=== PATIENT | female | born 2000 | race Caucasian/White ===

== ENCOUNTER 2022-07-16 15:01 | Emergency (ER) | payer MEDICARE, SELFPAY ==
[2022-07-16] MEDS: SODIUM CHLORIDE 0.9% 1,000 ML 1000 ML IV (15:09)
[2022-07-16 15:13] VITALS: BP 127/77; PULSE 77; RESP 18; TEMP 36; O2SAT 100; BMI 27.4
[2022-07-16 15:14] LABS: Add Manual Diff / Slide Review NO; Basophils Absolute Auto 0 /uL (0-100); Basophils Percent Auto 0.6 % (0-2); Eosinophils Absolute Auto 0 /uL (0-450); Eosinophils Percent Auto 0.5 % (2-4); Hematocrit 39.3 % (36-46); Hemoglobin 13.4 g/dL (12.0-16.0); Lymphocytes Absolute Auto 1800 /uL (1100-4500); Lymphocytes Percent Auto 22.2 % (25-40); Mean Corpuscular HGB Conc 34.2 % (30-36); Mean Corpuscular Hemoglobin 29.4 PG (26-34); Mean Corpuscular Volume 85.8 fL (80-100); Monocytes Absolute Auto 600 /uL (0-900); Monocytes Percent Auto 7.3 % (3-14); Neutrophils Absolute Auto 5700 /uL (1500-7000); Neutrophils Percent Auto 69.4 % (50-75); Platelet Count 324 X10^3/uL (150-400); Red Blood Cell Count 4.57 X10^6/uL (4.0-5.2); Red Cell Distribution Width 13.5 % (11.6-14.8); White Blood Cell Count 8.2 X10^3/uL (4.5-11.0)
[2022-07-16 15:31] LABS: Alanine Aminotransferase 16 IU/L (<35); Albumin 4.7 g/dL (3.5-5.0); Albumin Globulin Ratio 1.3 (1.0-2.8); Alkaline Phosphatase 71 U/L (38-126); Aspartate Aminotransferase 19 IU/L (14-36); BUN Creatinine Ratio 15.7 (6-22); Bilirubin Total 0.8 mg/dL (0.2-1.3); Blood Urea Nitrogen 11 mg/dL (7-17); Calcium 9.5 mg/dL (8.4-10.2); Carbon Dioxide 23 mmol/L (22-32); Chloride 100 mmol/L (98-107); Estimated Glomerular Filt Rate > 60 mL/min (>60); Globulin 3.5 g/dL (1.7-4.1); Glucose 284 mg/dL (70-100); HEMOLYSIS < 15 (0-50); Lipase 64 U/L (23-300); Potassium 3.7 mmol/L (3.4-5.1); Sodium 135 mmol/L (137-145); Total Protein 8.2 g/dL (6.3-8.2)
--- NOTE | 2022-07-16 15:31 | PC.NURSE ---
Patient reports first BM today was normal and when abdominal pain and cramping started had 2 back to back episodes of diarrhea. Patient reports been on amoxicillin for a week.
[2022-07-16 15:32] VITALS: BP 108/71; PULSE 62; RESP 16; O2SAT 100
[2022-07-16 16:09] VITALS: BP 111/69; PULSE 61; RESP 16; O2SAT 100
[2022-07-16 17:25] LABS: Hemoglobin A1C% w Est Avg Glu 6.8 % (4.0-6.0)
--- NOTE | 2022-07-16 17:58 | ED_ITS ---
HPI - Nausea/Vomiting/Diarrhea General Chief complaint: Nausea/Vomiting/Diarrhea Stated complaint: n/v/d Time Seen by Provider: 07/16/22 17:58 Source: patient and EMS Mode of arrival: EMS History of Present Illness HPI Narrative: Patient is a 22-year-old female history of type 1 diabetes presenting today with nausea vomiting. He reports that she had a really bad menstrual cramps she took an ibuprofen she vomited. She also felt that her heart rate was going really slow she felt a little dizzy and lightheaded she did not pass out. 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 She received fluids and Zofran and now feeling better. She also reports that she is taking amoxicillin for a tooth that needs to be pulled. Related Data Allergies Allergy/AdvReac Type Severity Reaction Status Date / Time gabapentin AdvReac Mild ITCHING Verified 07/16/22 15:13 Review of Systems Review of Systems ROS Unobtainable: All systems reviewed & are unremarkable except as noted in HPI and below Patient History Social History Smoking Status: Current every day smoker Smoking Status: Current every day smoker tobacco type: vaping Substance Use Type: marijuana Exam Initial Vital Signs Initial Vital Signs: Vital Signs Temperature 96.8 F L 07/16/22 15:13 Pulse Rate 77 07/16/22 15:13 Respiratory Rate 18 07/16/22 15:13 Blood Pressure 127/77 07/16/22 15:13 Pulse Oximetry 100 07/16/22 15:13 Oxygen Delivery Method Room Air 07/16/22 15:13 GENERAL: Alert pleasant 22-year-old female and in no acute distress. HEENT: Head atraumatic,EOMI, pupils reactive, face symmetric, moist mucous membranes CARDIOVASCULAR: Regular rate and rhythm without murmurs, rubs or gallops. RESPIRATORY: Breath sounds equal bilaterally, no wheezes rales or rhonchi. ABDOMEN: Soft, nontender. Normoactive bowel sounds all 4 quadrants. No guarding or rebound. EXTREMITIES: Normal range of motion, no clubbing or edema. Neurovascularly in tact NEUROLOGICAL: Alert and oriented x4. SKIN: Warm, dry, no laceration, no petechiae, no rashes or lesions. Course Orders Ordered: Discontinued Medications Sodium Chloride (Normal Saline 0.9%) 1,000 mls @ 1,000 mls/hr IV BOLUS ONE Stop: 07/16/22 16:04 Last Infusion: 07/16/22 16:41 Dose: 0 mls/hr Documented By: Admin: 07/16/22 15:09 Dose: 1,000 mls/hr Documented By: CESAR Ondansetron HCl (Ondansetron 4 Mg/2 Ml Inj) 4 mg IV NOW PRN PRN Reason: Nausea And Vomiting Vital Signs Vital signs: Vital Signs - 8 hr 07/16/22 15:13 07/16/22 15:32 07/16/22 16:09 Temperature 96.8 F L Pulse Rate 77 62 61 Respiratory Rate 18 16 16 Blood Pressure 127/77 108/71 111/69 Pulse Oximetry 100 100 100 Oxygen Delivery Method Room Air Room Air Room Air MDM - Nausea/Vomiting/Diarrhea Lab Data 07/16/22 15:08 07/16/22 15:08 Labs: Lab Results 07/16/22 07/16/22 07/16/22 Range/Units 15:08 15:08 15:08 WBC 8.2 (4.5-11.0) X10^3/uL RBC 4.57 (4.0-5.2) X10^6/uL Hgb 13.4 (12.0-16.0) g/dL Hct 39.3 (36-46) % MCV 85.8 (80-100) fL MCH 29.4 (26-34) PG MCHC 34.2 (30-36) % RDW 13.5 (11.6-14.8) % Plt Count 324 (150-400) X10^3/uL Neut % (Auto) 69.4 (50-75) % Lymph % (Auto) 22.2 L (25-40) % [place]att % (Auto) 7.3 (3-14) % Eos % (Auto) 0.5 L (2-4) % Baso % (Auto) 0.6 (0-2) % Neut # (Auto) 5700 (6666-9444) /uL Lymph # (Auto) 1800 (3789-4740) /uL [place] # (Auto) 600 (0-900) /uL Eos # (Auto) 0 (0-450) /uL Baso # (Auto) 0 (0-100) /uL Sodium 135 L (137-145) mmol/L Potassium 3.7 (3.4-5.1) mmol/L Chloride 100 (98-107) mmol/L Carbon Dioxide 23 (22-32) mmol/L BUN 11 (7-17) mg/dL Creatinine 0.70 (0.52-1.04) mg/dL Estimated GFR > 60 (>60) mL/min BUN/Creatinine Ratio 15.7 (6-22) Glucose 284 H (70-100) mg/dL Hemoglobin A1c 6.8 H (4.0-6.0) % Calcium 9.5 (8.4-10.2) mg/dL Total Bilirubin 0.8 (0.2-1.3) mg/dL AST 19 (14-36) IU/L ALT 16 (<35) IU/L Alkaline Phosphatase 71 (38-126) U/L Total Protein 8.2 (6.3-8.2) g/dL Albumin 4.7 (3.5-5.0) g/dL Globulin 3.5 (1.7-4.1) g/dL Albumin/Globulin Ratio 1.3 (1.0-2.8) Lipase 64 (23-300) U/L ECG Data Interpretation: Normal sinus rhythm 1 IA 26 QRS [address] changes no T-wave inversions MDM Narrative Medical decision making narrative: Patient 22-year-old female history of insulin-dependent diabetes presenting to vomiting after taking ibuprofen for menstrual cramps. She received Phenergan by EMS overall feeling better. Electrolytes are within normal limits she has no sign of DKA. No evidence of leukocytosis or anemia. Her hemoglobin A1c today is 6.8, overall well controlled. She is now tolerating fluids. Abdomen is soft . No need for further imaging. She overall feels significantly better. Is possible her ibuprofen made her vomit not entirely sure. She is not having any significant weaning sounds as though she is heavy menstrual cramps any way she is not anemic. Discharge Plan Departure Patient Disposition: Home Clinical Impression: Drug-induced nausea and vomiting Instructions: DI for Vomiting -- Adult Activity Restrictions/Additional Instructions: *You have been diagnosed with vomiting likely secondary to medication and crampy *What to do: At this time increase fluids as tolerated, *Continue to take medications as directed *Follow up with your primary care provider in 2-3 days or call [phone] *Return to ER if you should have persistent vomiting worsening pain heavy bleeding more than 2 super pads or tampons in an hour or any new, worsening or concerning symptoms Referrals: Froylan Villa MD [Primary Care Provider] - Stand Alone Forms: Patient Portal/API
[2022-07-16 18:52] VITALS: BP 110/59; PULSE 64; RESP 16; O2SAT 100
== END 2022-07-16 18:55 | disposition home or self-care (01) ==
PROVIDERS: Emergency Medicine; Emergency Provider Emergency Medicine; PCP Family Medicine Sports Medicine
DX: R11.2 Nausea with vomiting, unspecified (principal); R07.9 Chest pain, unspecified
CPT/HCPCS: 36415; 80053; 83036; 83690; 85025; 93005; 93010; 96360; 96361; 99284

== ENCOUNTER 2022-07-17 09:54 | Emergency (ER) | payer MEDICARE, SELFPAY ==
[2022-07-17 10:03] VITALS: BP 136/85; PULSE 100; RESP 16; TEMP 37.2; O2SAT 97; BMI 27.4
[2022-07-17 10:21] LABS: Add Manual Diff / Slide Review NO; Basophils Absolute Auto 0 /uL (0-100); Basophils Percent Auto 0.1 % (0-2); Eosinophils Absolute Auto 0 /uL (0-450); Eosinophils Percent Auto 0.9 % (2-4); Hematocrit 36.9 % (36-46); Hemoglobin 12.6 g/dL (12.0-16.0); Lymphocytes Absolute Auto 900 /uL (1100-4500); Lymphocytes Percent Auto 15.6 % (25-40); Mean Corpuscular HGB Conc 34.1 % (30-36); Mean Corpuscular Hemoglobin 29.5 PG (26-34); Mean Corpuscular Volume 86.5 fL (80-100); Monocytes Absolute Auto 500 /uL (0-900); Neutrophils Absolute Auto 4300 /uL (1500-7000); Neutrophils Percent Auto 75.4 % (50-75); Platelet Count 271 X10^3/uL (150-400); Red Blood Cell Count 4.27 X10^6/uL (4.0-5.2); Red Cell Distribution Width 14.1 % (11.6-14.8); White Blood Cell Count 5.7 X10^3/uL (4.5-11.0)
[2022-07-17] MEDS: PANTOPRAZOLE 40 MG VIAL 80 MG IV (10:24)
[2022-07-17 10:28] VITALS: PULSE 87; O2SAT 98
[2022-07-17 10:29] LABS: Prothrombin Time 11.4 SECONDS (10.1-12.7)
[2022-07-17 10:30] VITALS: BP 125/63; PULSE 85; O2SAT 98
[2022-07-17 10:31] LABS: PTT Partial Thromboplastin Tim 31 SECONDS (26-36)
[2022-07-17 10:32] LABS: Alanine Aminotransferase 14 IU/L (<35); Albumin 4.3 g/dL (3.5-5.0); Albumin Globulin Ratio 1.3 (1.0-2.8); Alkaline Phosphatase 102 U/L (38-126); Aspartate Aminotransferase 17 IU/L (14-36); Bilirubin Total 0.2 mg/dL (0.2-1.3); Blood Urea Nitrogen 8 mg/dL (7-17); Calcium 8.2 mg/dL (8.4-10.2); Carbon Dioxide 25 mmol/L (22-32); Chloride 102 mmol/L (98-107); Estimated Glomerular Filt Rate > 60 mL/min (>60); Globulin 3.3 g/dL (1.7-4.1); Glucose 391 mg/dL (70-100); HEMOLYSIS < 15 (0-50); Potassium 4.3 mmol/L (3.4-5.1); Sodium 137 mmol/L (137-145); Total Protein 7.6 g/dL (6.3-8.2)
[2022-07-17 10:33] LABS: Appearance Urine UA OTHER; Bilirubin Urine UA NEGATIVE (NEGATIVE); Color Urine UA YELLOW; Glucose Urine UA 3+ g/dL (Negative); Ketones Urine UA NEGATIVE (NEGATIVE); Leukocyte Esterase Urine UA NEGATIVE (NEGATIVE); Nitrite Urine UA NEGATIVE (Negative); Occult Blood Urine UA 3+ (Negative); Protein Urine UA NEGATIVE (Negative); Urobilinogen Urine UA 0.2 E.U./dL (0.2); pH Urine UA 5.5 (4.5-8.0)
[2022-07-17 10:36] LABS: Bacteria Urine None Seen; Culture Indicated Urine Cult Not Indicated; RBC Urine 5-10/HPF (0-5/HPF); WBC Urine None Seen (0-5/HPF)
--- NOTE | 2022-07-17 11:45 | ED.GIBLEED ---
HPI - GI Bleed General Chief complaint: GI Bleed Stated complaint: blood in stool/doesn't feel good Time Seen by Provider: 07/17/22 11:45 Source: patient and other (friend/partners mom) Mode of arrival: Ambulatory Limitations: no limitations History of Present Illness HPI Narrative: This is a 22-year-old female history of ADHD and insulin-dependent diabetes who presents with concern for blood in stool. Patient states that she presents today she was having black discoloration in her stool. She called her doctor's nurse stated she was actually seen yesterday here in the emergency department but they had not really addressed that she was having these issues and they prompted her to return. Patient states yesterday she was seen she is been having vaginal bleeding she started with has not been having regular periods had a large amount of bleeding the 1st day and has since tapered to a normal amount for her. She states she was feeling some pelvic cramping she took some ibuprofen and then felt very sweaty, she states her blood pressure was low and she just felt generally unwell. Patient states no fevers. No chills. She states she feels much better today. No chest pain or shortness of breath. No nausea or vomiting. She states she has recently been on amoxicillin was having a lot of diarrhea. She stopped the amoxicillin that has been improving. She saw some blood as well as black mixed in with her stool for the last 2 or 3 days. Patient states she is still having some bleeding but she notes it is much better and more than normal. Amount of blood she denies dysuria, urgency or frequency. She states that her glucose was elevated somewhat yesterday but also today. She states she did not do her normal insulin this morning. She has been using her Lantus nightly and states she typically does Humalog 3 times daily but had had her morning amount. It is noted in her chart her A1c was 6.8 yesterday here in the emergency department. Patient states she is on medication for ADHD and insulin. She states she is pretty good about taking her medications and her A1c has been better controlled than when she was younger. She does note that when she was younger going through puberty her hormone seem to affect her sugars quite a bit. Patient has been in contact with her primary care, they are getting a referral for her to follow up with Gynecology she is worried about ovarian cyst but states she is not having any pain currently. Patient denies any major surgeries. Related Data Allergies Allergy/AdvReac Type Severity Reaction Status Date / Time gabapentin AdvReac Mild ITCHING Verified 07/17/22 10:09 Review of Systems Review of Systems ROS Unobtainable: All systems reviewed & are unremarkable except as noted in HPI and below Patient History Social History Smoking Status: Current every day smoker Smoking Status: Current every day smoker tobacco type: vaping alcohol intake frequency: holidays/special occasions only Substance Use Type: marijuana Exam Narrative Exam Narrative: GENERAL: Alert and oriented x three, mild distress. HEENT: Head normocephalic, atraumatic, EOMI, pupils reactive, face symmetric, moist mucous membranes NECK: Supple, full range of motion CARDIOVASCULAR: Regular rate and rhythm without murmurs, rubs or gallops. RESPIRATORY: Breath sounds equal bilaterally, no wheezes rales or rhonchi. ABDOMEN: Soft, nontender. Nondistended. Normoactive bowel sounds all 4 quadrants. No guarding or rebound, rigidity, no mass : No CVA tenderness EXTREMITIES: Normal range of motion, no clubbing or edema. Neurovascularly intact NEUROLOGICAL: Cranial nerves II through XII grossly intact. Moving all extremities SKIN: Warm, dry, no petechiae, no rashes or lesions. Initial Vital Signs Initial Vital Signs: Vital Signs Temperature 99.0 F 07/17/22 10:03 Pulse Rate 100 H 07/17/22 10:03 Respiratory Rate 16 07/17/22 10:03 Blood Pressure 136/85 07/17/22 10:03 Pulse Oximetry 97 07/17/22 10:03 Oxygen Delivery Method Room Air 07/17/22 10:03 Course Orders Ordered: Discontinued Medications Ondansetron HCl (Ondansetron 4 Mg/2 Ml Inj) 4 mg IV NOW PRN PRN Reason: Nausea And Vomiting Pantoprazole Sodium (Pantoprazole 40 Mg Vial) 80 mg IV NOW ONE Stop: 07/17/22 10:08 Last Admin: 07/17/22 10:24 Dose: 80 mg Documented By: AMU Vital Signs Vital signs: Vital Signs - 8 hr 07/17/22 10:03 07/17/22 10:28 07/17/22 10:30 Temperature 99.0 F Pulse Rate 100 H 87 Respiratory Rate 16 Blood Pressure 136/85 125/63 Pulse Oximetry 97 98 Oxygen Delivery Method Room Air 07/17/22 10:30 07/17/22 11:59 07/17/22 11:59 Temperature Pulse Rate 85 72 Respiratory Rate Blood Pressure 142/68 H Pulse Oximetry 98 99 Oxygen Delivery Method MDM - GI Bleed Lab Data 07/17/22 10:10 07/17/22 10:10 Labs: Lab Results 07/17/22 07/17/22 07/17/22 Range/Units 10:10 10:10 10:10 WBC 5.7 (4.5-11.0) X10^3/uL RBC 4.27 (4.0-5.2) X10^6/uL Hgb 12.6 (12.0-16.0) g/dL Hct 36.9 (36-46) % MCV 86.5 (80-100) fL MCH 29.5 (26-34) PG MCHC 34.1 (30-36) % RDW 14.1 (11.6-14.8) % Plt Count 271 (150-400) X10^3/uL Neut % (Auto) 75.4 H (50-75) % Lymph % (Auto) 15.6 L (25-40) % [place] % (Auto) 8.0 (3-14) % Eos % (Auto) 0.9 L (2-4) % Baso % (Auto) 0.1 (0-2) % Neut # (Auto) 4300 (0823-0954) /uL Lymph # (Auto) 900 L (8099-7215) /uL [place] # (Auto) 500 (0-900) /uL Eos # (Auto) 0 (0-450) /uL Baso # (Auto) 0 (0-100) /uL PT 11.4 (10.1-12.7) SECONDS INR 1.0 (0.9-1.3) APTT 31 (26-36) SECONDS Sodium 137 (137-145) mmol/L Potassium 4.3 (3.4-5.1) mmol/L Chloride 102 (98-107) mmol/L Carbon Dioxide 25 (22-32) mmol/L BUN 8 (7-17) mg/dL Creatinine 0.57 (0.52-1.04) mg/dL Estimated GFR > 60 (>60) mL/min BUN/Creatinine Ratio 14.0 (6-22) Glucose 391 H D (70-100) mg/dL Calcium 8.2 L (8.4-10.2) mg/dL Total Bilirubin 0.2 (0.2-1.3) mg/dL AST 17 (14-36) IU/L ALT 14 (<35) IU/L Alkaline Phosphatase 102 (38-126) U/L Total Protein 7.6 (6.3-8.2) g/dL Albumin 4.3 (3.5-5.0) g/dL Globulin 3.3 (1.7-4.1) g/dL Albumin/Globulin Ratio 1.3 (1.0-2.8) Urine Color Urine Appearance Urine pH (4.5-8.0) Ur Specific [place] (1.000-1.035) Urine Protein (Negative) Urine Glucose (UA) (Negative) g/dL Urine Ketones (NEGATIVE) Urine Occult Blood (Negative) Urine Nitrate (Negative) Urine Bilirubin (NEGATIVE) Urine Urobilinogen (0.2) E.U./dL Ur Leukocyte Esterase (NEGATIVE) Urine RBC (0-5/HPF) Urine WBC (0-5/HPF) Urine Bacteria (None) Ur Culture Indicated? 07/17/22 Range/Units 10:10 WBC (4.5-11.0) X10^3/uL RBC (4.0-5.2) X10^6/uL Hgb (12.0-16.0) g/dL Hct (36-46) % MCV (80-100) fL MCH (26-34) PG MCHC (30-36) % RDW (11.6-14.8) % Plt Count (150-400) X10^3/uL Neut % (Auto) (50-75) % Lymph % (Auto) (25-40) % [place] % (Auto) (3-14) % Eos % (Auto) (2-4) % Baso % (Auto) (0-2) % Neut # (Auto) (5556-4805) /uL Lymph # (Auto) (0670-8897) /uL [place] # (Auto) (0-900) /uL Eos # (Auto) (0-450) /uL Baso # (Auto) (0-100) /uL PT (10.1-12.7) SECONDS INR (0.9-1.3) APTT (26-36) SECONDS Sodium (137-145) mmol/L Potassium (3.4-5.1) mmol/L Chloride (98-107) mmol/L Carbon Dioxide (22-32) mmol/L BUN (7-17) mg/dL Creatinine (0.52-1.04) mg/dL Estimated GFR (>60) mL/min BUN/Creatinine Ratio (6-22) Glucose (70-100) mg/dL Calcium (8.4-10.2) mg/dL Total Bilirubin (0.2-1.3) mg/dL AST (14-36) IU/L ALT (<35) IU/L Alkaline Phosphatase (38-126) U/L Total Protein (6.3-8.2) g/dL Albumin (3.5-5.0) g/dL Globulin (1.7-4.1) g/dL Albumin/Globulin Ratio (1.0-2.8) Urine Color Yellow Urine Appearance Other Urine pH 5.5 (4.5-8.0) Ur Specific [place] 1.010 (1.000-1.035) Urine Protein Negative (Negative) Urine Glucose (UA) 3+ H (Negative) g/dL Urine Ketones Negative (NEGATIVE) Urine Occult Blood 3+ H (Negative) Urine Nitrate Negative (Negative) Urine Bilirubin Negative (NEGATIVE) Urine Urobilinogen 0.2 (0.2) E.U./dL Ur Leukocyte Esterase Negative (NEGATIVE) Urine RBC 5-10/hpf H (0-5/HPF) Urine WBC None seen (0-5/HPF) Urine Bacteria None seen (None) Ur Culture Indicated? Cult not indicated Point of Care Testing Test Results Negative Stool Occult Blood Negative MDM Narrative Medical decision making narrative: This is a 22 old female who presents with recent vaginal bleeding was seen in the ER yesterday and also noted some blood and black in her stool. She states that specifically was not addressed as much. She states her bleeding has been improving she was feeling quite unwell yesterday but feels better today. She returns today because she was prompted by her primary care nurse when she called for guidance. Hemoglobin stable was 13 yesterday is 12.6 today platelets are normal normal white count. Negative coags. CMP is negative glucose is 391, patient's LFTs are normal. Anion gap is negative. Glucose is 391. Patient notes she has not had her morning insulin. She defers any here and states she is happy continue her home medications and should improve quickly when she gets her morning insulin. Urine shows glucose as well as occult blood. Patient does have vaginal bleeding as well. Stool occult was performed here is negative. is negative. Patient was able to give a sample. She states she has not had any foods such as beets or other things that she would think would cause for changes. Discussed with patient she feels comfortable returning home she is hemodynamically stable felt appropriate for discharge. Her A1c is 6.8 she feels comfortable managing her sugar and is not in DKA or requiring hospitalization for hyperglycemia. We did discuss return precautions. She is set up follow-up with her primary care and is working on setting up follow-up for her vaginal bleeding as this is atypical and she is having irregular periods. Discharge Plan Departure Patient Disposition: Home Clinical Impression: Hyperglycemia Activity Restrictions/Additional Instructions: If you have persistent black or bloody appearing stools and feel normal with no other issues follow-up with your physician. I agree with your plan to follow up with Gynecology regarding vaginal bleeding. If you are having fevers, new or worsening abdominal pain, worsening black or bloody stools, lightheadedness or passing out, new chest pain or shortness of breath, persistent vomiting, going through more than 1 pad or tampon an hour or other new or concerning changes please return. Referrals: Froylan Villa MD [Primary Care Provider] - Stand Alone Forms: Patient Portal/API
[2022-07-17 11:59] VITALS: BP 142/68; PULSE 72; O2SAT 99
[2022-07-17 12:00] VITALS: BP 127/79; PULSE 78; O2SAT 99
[2022-07-17 12:30] VITALS: BP 126/78; PULSE 75; O2SAT 98
== END 2022-07-17 13:07 | disposition home or self-care (01) ==
PROVIDERS: Emergency Provider Emergency Medicine; PCP Family Medicine Sports Medicine
DX: E11.65 Type 2 diabetes mellitus with hyperglycemia (principal)
CPT/HCPCS: 36415; 80053; 81001; 81025; 82272; 85025; 85610; 85730; 96374; 99284; C9113

== ENCOUNTER 2023-05-27 04:09 | Emergency (ER) | payer MEDICARE, SELFPAY ==
[2023-05-27] VITALS (8 sets, daily range): BP systolic 114–183; BP diastolic 59–107; PULSE 66–108; RESP 15–23; TEMP 36.2–36.4; O2SAT 98–100; BMI 28.3
--- NOTE | 2023-05-27 04:36 | DI.RAD.S_ITS ---
PROCEDURE: XR CHEST 1V INDICATIONS: SOB TECHNIQUE: One view of the chest was acquired. COMPARISON: None. FINDINGS: Surgical changes and devices: None. Lungs and pleura: Lungs are clear. No pleural effusions or pneumothorax. Mediastinum: Mediastinal contours appear normal. Heart size is normal. Bones and chest wall: No suspicious bony lesions. Overlying soft tissues appear unremarkable. IMPRESSION: No acute cardiopulmonary abnormality is seen. There is no significant discrepancy when compared to the overnight preliminary report. Approved by: Erick Bethea M.D. on 05/27/2023 at 8:23
--- NOTE | 2023-05-27 04:59 | ED.ARRPALP ---
HPI - Arrhythmia/Palpitations General Chief Complaint: Arrhythmia/Palpitations Stated Complaint: hard time breathing, rapid heart, dizzy Time Seen by Provider: 05/27/23 04:19 Source: patient Mode of arrival: Ambulatory History of Present Illness HPI narrative: 23-year-old female smoker presents for evaluation of palpitations and trouble breathing. She states she has been under significant stress lately and just moved to avoid stressors with her family. She states that she noted tonight that when she went to lay down for the night she found herself to be short of breath with palpitations which improved upon sitting up. She denies chest pain, she has had no runny nose, sore throat or cough. She denies fever or chills. Related Data Allergies Allergy/AdvReac Type Severity Reaction Status Date / Time gabapentin AdvReac Mild ITCHING Verified 07/17/22 10:09 ondansetron [From Zofran] AdvReac ITCHING Verified 05/27/23 04:31 Review of Systems Review of Systems Narrative: GENERAL: Denies chills, fatigue, malaise, fever, sweats. HEENT: Denies sinus pain, ear pain, sore throat, difficulty swallowing, dizziness. RESPIRATORY: See HPI CARDIOVASCULAR: See HPI GASTROINTESTINAL: Denies nausea, vomiting, abdominal pain, diarrhea, constipation, melena. : Denies dysuria, frequency, incontinence, hematuria, urinary retention. MUSCULOSKELETAL: denies weakness, joint pain, or bony pain SKIN: Denies rash, skin lesions, or other NEUROLOGIC: Denies weakness, headache, numbness, change in speech, confusion, seizures, incoordination. PSYCHIATRIC: No concerning psychosocial issues. 12 point review of systems is negative except for those stated above Patient History Social History Smoking Status: Current every day smoker Smoking Status: Current every day smoker tobacco type: vaping alcohol intake frequency: holidays/special occasions only Substance Use Type: marijuana Exam Narrative Exam Narrative: GENERAL: [23] year old patient appears stated age. Well-developed patient, in mild distress. Anxious, tearful HEAD: Atraumatic. Normocephalic. EYES: Pupils equal round and reactive. Extraocular motions intact. No scleral icterus. No injection or drainage. ENT: Nose without bleeding, purulent drainage. Throat without erythema, tonsillar hypertrophy or exudate. Airway patent. NECK: Trachea midline. Non tender CARDIOVASCULAR: Regular rate and rhythm without murmurs, gallops, or rubs. RESPIRATORY: Clear to auscultation. Breath sounds equal bilaterally. No wheezes, rales, or rhonchi. GASTROINTESTINAL: Abdomen soft, non-tender, nondistended. EXTREMITIES: No edema or joint tenderness. BACK: Nontender without deformity or crepitance. No flank tenderness. NEURO: AOx3. SKIN: No rash or erythema of visible areas Initial Vital Signs Initial Vital Signs: Vital Signs Temperature 97.2 F L 05/27/23 04:15 Pulse Rate 86 05/27/23 04:15 Respiratory Rate 22 05/27/23 04:15 Blood Pressure 159/94 H 05/27/23 04:15 Pulse Oximetry 99 05/27/23 04:15 Oxygen Delivery Method Room Air 05/27/23 04:15 Course Orders Ordered: ED Orders 05/27/23 04:36 Chest [XR chest 1V] Stat EKG-12 Lead Stat 05/27/23 04:53 Basic Metabolic Panel Stat Magnesium Stat Troponin & CK Cardiac Panel Stat Vital Signs Vital signs: Vital Signs - 8 hr 05/27/23 04:15 Temperature 97.2 F L Pulse Rate 86 Respiratory Rate 22 Blood Pressure 159/94 H Pulse Oximetry 99 Oxygen Delivery Method Room Air MDM - Arrhythmia/Palpitations Lab Data 05/27/23 04:53 Labs: Lab Results 05/27/23 Range/Units 04:53 Sodium 135 L (137-145) mmol/L Potassium 3.7 (3.4-5.1) mmol/L Chloride 101 (98-107) mmol/L Carbon Dioxide 25 (22-32) mmol/L BUN 12 (7-17) mg/dL Creatinine 0.42 L (0.52-1.04) mg/dL Estimated GFR > 60 (>60) mL/min BUN/Creatinine Ratio 28.6 H (6-22) Glucose 210 H (70-100) mg/dL Calcium 9.0 (8.4-10.2) mg/dL Magnesium 1.6 (1.6-2.3) mg/dL Total Creatine Kinase 56 (30-135) U/L Troponin I < 0.012 (0.01-0.034) ng/mL MDM Narrative Medical decision making narrative: [23] year old patient presents with palpitations over the past day or 2 Multiple etiologies for patient's symptoms considered including, but not limited to: [Electrolyte abnormality versus infectious process versus dehydration versus cardiac disease versus other] Prior Charts reviewed in our EMR Primary Historian: patient Labs reviewed and interpreted by myself: No signs leukocytosis, anemia. Primary electrolytes and renal function within normal limits. Glucose slightly elevated at 210. Troponin undetectable Imaging reviewed: No acute cardiopulmonary abnormality is seen Patient's symptoms improved over duration of stay with above-stated therapies. Patient's history and physical exam are very reassuring, no significant lab abnormalities, EKG nonischemic it without any arrhythmia. Patient has been under significant stress lately and admits to having poor sleep, increased anxiety, poor diet. It seems at this point her symptoms are likely multifactorial, we discussed any further evaluation including advanced imaging and further lab testing but sure the opinion that given her lack of symptoms, reassuring story that we will hold on for now. She is given return precautions, encouraged to follow up with her primary. Findings and discharge diagnosis discussed with patient/family followed by verbalization of understanding Return precautions discussed with patient/family whom verbalize understanding of diagnosis and plan Discharge Plan Departure Patient Disposition: Home Clinical Impression: Palpitations Instructions: DI for Palpitations Activity Restrictions/Additional Instructions: *You have been diagnosed with [palpitations] *What to do: *Please continue to take your regular medications as directed. *Please follow up with your primary care provider in 2-3 days, call for an appointment. Let them know you were seen in the Emergency Department and that we ask that you be seen in follow up. We will electronically transmit a record of today's note if your PCP is in our system *If you do not have a primary care provider please contact the [facility] Resource line at [phone]. They will ask some questions about your medical history and help get you set up with a doctor in the community. *Return to Emergency Department if you should have any new, worsening or concerning symptoms, such as [fever greater than 101 F, shaking chills, worsening pain, persistent vomiting or other bothersome symptoms] Referrals: Froylan Villa MD [Primary Care Provider] - Stand Alone Forms: Patient Portal/API
[2023-05-27 05:12] LABS: BUN Creatinine Ratio 28.6 (6-22); Blood Urea Nitrogen 12 mg/dL (7-17); Carbon Dioxide 25 mmol/L (22-32); Chloride 101 mmol/L (98-107); Creatine Kinase 56 U/L (30-135); Estimated Glomerular Filt Rate > 60 mL/min (>60); Glucose 210 mg/dL (70-100); HEMOLYSIS < 15 (0-50); Magnesium 1.6 mg/dL (1.6-2.3); Potassium 3.7 mmol/L (3.4-5.1); Sodium 135 mmol/L (137-145)
[2023-05-27 05:24] LABS: Troponin I < 0.012 ng/mL (0.01-0.034)
== END 2023-05-27 06:09 | disposition home or self-care (01) ==
PROVIDERS: Emergency Provider Emergency Medicine; PCP Family Medicine Sports Medicine
DX: R00.2 Palpitations (principal); R06.02 Shortness of breath
CPT/HCPCS: 71045; 80048; 82550; 83735; 84484; 93005; 99281; 99284